=== PATIENT | male | born 1955 | race Two or more races ===

== ENCOUNTER 2016-09-09 12:22 | Emergency (ER) | payer BC ==
[2016-09-09 12:32] VITALS: TEMP 98; BMI 26.3
[2016-09-09 13:09] LABS: EOSINOPHIL 4.2 % (0-4.5); MCH 26.6 pg (25.7-33.7); MCHC 33.7 g/dl (32.0-35.9); MEAN CELL VOLUME 78.9 fl (80-96); MEAN PLT VOLUME 9.1 fl (7.5-11.1); NEUTROPHILS 74.9 % (42.8-82.8); PLATELET COUNT 112 K/MM3 (134-434); RDW 14.6 % (11.9-15.9); WHITE BLOOD COUNT 8.7 K/mm3 (4.0-10.0)
[2016-09-09 13:44] LABS: ALBUMIN 4.2 g/dl (3.4-5.0); ANION GAP 12 (8-16); BILIRUBIN,TOTAL 0.6 mg/dL (0.2-1.0); CALCIUM 8.9 mg/dL (8.5-10.1); CO2 21 mmol/L (21-32); COCKROFT - GAULT 46.45; CREATININE 1.8 mg/dL (0.7-1.3); GLUCOSE,RANDOM 158 mg/dL (74-106); SGOT/AST 25 U/L (15-37); TOT PROT 8.1 g/dl (6.4-8.2)
[2016-09-09 13:49] LABS: INR 1.12 (0.82-1.09); PROTHROMBIN TIME (PATIENT) 12.3 SEC (9.98-11.88)
[2016-09-09 13:50] LABS: ALK PHOS 106 U/L (45-117); SGPT/ALT 32 U/L (12-78); TROPONIN I < 0.02 ng/ml (0.00-0.05)
--- NOTE | 2016-09-09 14:13 | CON.NEURO ---
Consult Consult Specialty:: Neurology Referred by:: Dr. Delroy Barajas Reason for Consultation:: Visual Disturbance - History of Present Illness Chief Complaint: Visual Loss History of Present Illness: Beginning last night around 6 PM patient noticed floaters and generally foggy vision. These were throughout his visual field. 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 When he told his son, his son brought him to the ER. The onset of the inability to read was approximately 9AM this morning, though he is not entirely certain. He notes no weakness, numbness, or sensory loss. Both eyes are involved. He has a long history of disturbed vision. He has had cataracts and very poor vision for years as well as retinal disease. He had been getting laser treatments until about 3 years ago, but then developed severe cardiac disease and had to stop, and hasn't seen an opthalmologist in 3 years. 10-12 years ago he went for an eye exam at [facility], [place] and he tells me that the doctor discovered that he was not able to see to his left side. He was never told why that was, and no diagnostic test was ever undertaken to explain the reason for this hemianopsia. 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: Yes: CVA (he didn't realize it but the homonomous hemianopsia dates back 10 -12 years and likely relates to the stroke visualized on the CT from this AM) Cardio/Vascular: Yes: CAD, HTN, Hyperlipdemia Renal/: Yes: Renal Inusuff, Other (hyperkalemia) Musculoskeletal: Yes: Osteoarthritis Endocrine: Yes: Diabetes Mellitus - Past Surgical History Past Surgical History: Yes: Joint Replacement - Alcohol/Substance Use Hx Alcohol Use: No - Smoking History Smoking history: Current some day smoker Have you smoked in the past 12 months: Yes Aproximately how many cigarettes per day: 2 - Social History Usual Living Arrangement: With Spouse Occupation: works in [employer] in [employer] History of Recent Travel: No Home Medications - Allergies Allergies/Adverse Reactions: Allergies Allergy/AdvReac Type Severity Reaction Status Date / Time Fish Containing Products Allergy Verified 09/09/16 12:32 No Known Drug Allergies Allergy Verified 09/09/16 12:32 - Home Medications Home Medications: Ambulatory Orders Vit B Cmplx 3/FA/Vit C/Biotin [Stacy-Rebeka Rx Tablet] 1 each PO DAILY 01/21/16 Acetaminophen [Tylenol .Regular Strength -] 650 mg PO Q6H PRN #0 tablet Amlodipine Besylate [Norvasc -] 5 mg PO DAILY tablet 01/24/16 Aspirin [ASA -] 81 mg PO DAILY tab.chew 01/24/16 Furosemide [Lasix -] 40 mg PO DAILY #30 tablet 01/24/16 Isosorbide Mononitrate [Imdur -] 30 mg PO DAILY #30 tab.sr.24h 01/24/16 Metoprolol Succinate [Toprol XL -] 50 mg PO DAILY tab.sr.24h 01/24/16 Sitagliptin Phosphate [Januvia -] 25 mg PO DAILY@0700 #30 tab 01/24/16 Clopidogrel Bisulfate [Plavix -] 75 mg PO DAILY 09/09/16 Ferrous Sulfate 325 mg PO DAILY 09/09/16 Ramipril 2.5 mg PO DAILY 09/09/16 Rosuvastatin [Crestor -] 20 mg PO HS 09/09/16 Family Disease History - Family Disease History Family Disease History: Diabetes: Mother Physical Exam-Neuro Vital Signs: Vital Signs Temperature 98.0 F 09/09/16 12:29 Pulse Rate 68 09/09/16 13:12 Respiratory Rate 18 09/09/16 13:12 Blood Pressure 139/64 09/09/16 13:12 O2 Sat by Pulse Oximetry (%) 100 09/09/16 13:12 Labs: CBC, BMP 09/09/16 13:00 09/09/16 13:00 INR, PTT INR 1.12 (0.82-1.09) 09/09/16 13:00 - Neuro Exam Cranial Nerves II-XII Intact: No (II: Left homonous hemianopsia, finger counting on right visual field, postive light reflex, positive response to optokinetic strip) DTR's: 2+ Left Bicep, 2+ Right Bicep, 2+ Left Tricep, 2+ Right Tricep, 2+ Left Brachioradialis, 2+ Right Brachioradialis Babinski: Absent Response to light touch: Normal Motor Strength: 5/5: Left Arm, Right Arm, Left Leg, Right Leg Gait: Deferred NIH Stroke Scale - Total Score NIH Stroke Scale Score: 0 Imaging - Results Cat Scan: Report Reviewed, Image Reviewed (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 I think that the current problem is likely ocular and would consult ophthalmology. His disturbance seemed to start last night with "floaters" and foggy vision and then progress this AM to a severe disturbance in visual acuity. I can't be 100 % certain that the floaters are related to his sudden drop in vision this AM, though it does seem parsimonious to make that assumption. He is certainly out of the TPA window and cannot get an MRI. If ophthalmology cannot find an ocular cause, we could repeat his CT scan tomorrrow to look for left occipital infarction, which could conceivably do this , though wouldn't likely account for his experience of floaters last night. Thanks. Code(s): H54.7 - UNSPECIFIED VISUAL LOSS
--- NOTE | 2016-09-09 15:09 | PDOC ---
History of Present Illness <Delroy Barajas - Last Filed: 09/09/16 16:45> - General History Source: Patient, Family Exam Limitations: No Limitations - History of Present Illness Initial Comments: 09/09/16 15:18 The patient is a 60 year old male presenting with his son, with a significant past medical history of hypertension, hyperlipidemia, CAD s/p cardiac stents, CHF (on Lasix), and Diabetes, who presents to the emergency department with blurry vision since yesterday. He reports that he was experiencing floaters yesterday but today his vision became increasingly blurry, which he describes as lines and foggy. He reports that his colleague helped him check his sugar levels, which were within normal limits. He notes that he usually get intermittent floaters in his right eye on baseline. He reports that he feels that he can see better from his left eye than his right. The patient is following up with an ophthomolagist, who they attempted to see today but the office was closed. He denies any recent trauma or sickness. He states that 3 years ago he was getting eye injections in his right eye due glucose deposits. The patient denies chest pain, shortness of breath, headache and dizziness. Denies fever, chills, nausea, vomit, diarrhea and constipation. Denies dysuria, frequency, urgency and hematuria. Allergies: Fish containing products Past surgical history: Right knee surgery (April 2013), cardiac stents Social history: No alcohol, tobacco or drug use reported PMD - Dr. Feng Plan Coordinator - Dr. Monzon <Maicol Harris - Last Filed: 09/09/16 17:07> - General Chief Complaint: Difficulty seeing Stated Complaint: BLURRY VISION Time Seen by Provider: 09/09/16 12:31 Past History - Past Medical History Anemia: No Asthma: No Cancer: No Cardiac Disorders: Yes (Multiple stensts (2012,2013)) CVA: No COPD: No CHF: No Dementia: No Diabetes: Yes (IDDM) GI Disorders: No Disorders: No HTN: Yes Hypercholesterolemia: Yes Liver Disease: No Seizures: No Thyroid Disease: No - Surgical History Abdominal Surgery: No Appendectomy: No Cardiac Surgery: Yes (Stents X5) Cholecystectomy: No Lung Surgery: No Neurologic Surgery: No Orthopedic Surgery: Yes (ORIF 01/27/14) - Immunization History Immunization Up to Date: No - Psycho/Social/Smoking Cessation Hx Anxiety: No Suicidal Ideation: No Smoking History: Current some day smoker Have you smoked in the past 12 months: Yes Number of Cigarettes Smoked Daily: 2 Information on smoking cessation initiated: No Hx Alcohol Use: No Drug/Substance Use Hx: No Substance Use Type: None Hx Substance Use Treatment: No <Delroy Barajas - Last Filed: 09/09/16 16:45> <Maicol Harris - Last Filed: 09/09/16 17:07> - Past Medical History Allergies/Adverse Reactions: Allergies Allergy/AdvReac Type Severity Reaction Status Date / Time Fish Containing Products Allergy Verified 09/09/16 12:32 No Known Drug Allergies Allergy Verified 09/09/16 12:32 Home Medications: Ambulatory Orders Vit B Cmplx 3/FA/Vit C/Biotin [Stacy-Rebeka Rx Tablet] 1 each PO DAILY 01/21/16 Acetaminophen [Tylenol .Regular Strength -] 650 mg PO Q6H PRN #0 tablet Amlodipine Besylate [Norvasc -] 5 mg PO DAILY tablet 01/24/16 Aspirin [ASA -] 81 mg PO DAILY tab.chew 01/24/16 Furosemide [Lasix -] 40 mg PO DAILY #30 tablet 01/24/16 Isosorbide Mononitrate [Imdur -] 30 mg PO DAILY #30 tab.sr.24h 01/24/16 Metoprolol Succinate [Toprol XL -] 50 mg PO DAILY tab.sr.24h 01/24/16 Sitagliptin Phosphate [Januvia -] 25 mg PO DAILY@0700 #30 tab 01/24/16 Clopidogrel Bisulfate [Plavix -] 75 mg PO DAILY 09/09/16 Ferrous Sulfate 325 mg PO DAILY 09/09/16 Ramipril 2.5 mg PO DAILY 09/09/16 Rosuvastatin [Crestor -] 20 mg PO HS 09/09/16 Review of Systems - Review of Systems Able to Perform ROS?: Yes Comments:: 09/09/16 15:18 GENERAL/CONSTITUTIONAL: No fever or chills. No weakness. HEAD, EYES, EARS, NOSE AND THROAT: (+) Blurry vision. No ear pain or discharge. No sore throat. CARDIOVASCULAR: No chest pain or shortness of breath RESPIRATORY: No cough, wheezing, or hemoptysis. GASTROINTESTINAL: No nausea, vomiting, diarrhea or constipation. GENITOURINARY: No dysuria, frequency, or change in urination. MUSCULOSKELETAL: No joint or muscle swelling or pain. No neck or back pain. SKIN: No rash NEUROLOGIC: No headache, vertigo, loss of consciousness, or change in strength/ sensation. ENDOCRINE: No increased thirst. No abnormal weight change HEMATOLOGIC/LYMPHATIC: No anemia, easy bleeding, or history of blood clots. ALLERGIC/IMMUNOLOGIC: No hives or skin allergy. <Maicol Harris - Last Filed: 09/09/16 17:07> *Physical Exam - Vital Signs Last Vital Signs Temp Pulse Resp BP Pulse Ox 98.0 F 68 18 139/64 100 09/09/16 12:29 09/09/16 13:12 09/09/16 13:12 09/09/16 13:12 09/09/16 13:12 <Delroy Barajas - Last Filed: 09/09/16 16:45> - Vital Signs Last Vital Signs Temp Pulse Resp BP Pulse Ox 98.0 F 68 18 139/64 100 09/09/16 12:29 09/09/16 13:12 09/09/16 13:12 09/09/16 13:12 09/09/16 13:12 - Physical Exam Comments: 09/09/16 15:18 GENERAL: Awake, alert, and fully oriented, in no acute distress HEAD: No signs of trauma, normocephalic, atraumatic EYES: (+) No red relfex in either eye. PERRLA, EOMI, no nystagmus, no discongigate gaze, fundas are not visible on either side, sclera anicteric, conjunctiva clear. Bilateral upper, outer field cuts. No blinking during occular threat. ENT: Auricles normal inspection, hearing grossly normal, nares patent, oropharynx clear without exudates. Moist mucosa NECK: Normal ROM, supple, no lymphadenopathy, JVD, or masses LUNGS: No distress, speaks full sentences, clear to auscultation bilaterally HEART: Regular rate and rhythm, normal S1 and S2, no murmurs, rubs or gallops, peripheral pulses normal and equal bilaterally. ABDOMEN: Soft, nontender, normoactive bowel sounds. No guarding, no rebound. No masses EXTREMITIES: Normal inspection, Normal range of motion, no edema. No clubbing or cyanosis. NEUROLOGICAL: Cranial nerves II through XII grossly intact. Normal speech, normal gait, no focal sensorimotor deficits SKIN: Warm, Dry, normal turgor, no rashes or lesions noted. <Maicol Harris - Last Filed: 09/09/16 17:07> ED Treatment Course - LABORATORY CBC & Chemistry Diagram: 09/09/16 13:00 09/09/16 13:00 - ADDITIONAL ORDERS Additional order review: Laboratory Results 09/09/16 09/09/16 13:00 13:00 INR 1.12 Sodium 139 Potassium 4.7 D Chloride 106 Carbon Dioxide 21 Anion Gap 12 BUN 42 H D Creatinine 1.8 H Creat Clearance w eGFR 38.55 Random Glucose 158 H D Calcium 8.9 Total Bilirubin 0.6 D AST 25 ALT 32 Alkaline Phosphatase 106 Creatine Kinase 133 Troponin I < 0.02 D B-Natriuretic Peptide 4928.22 H Total Protein 8.1 Albumin 4.2 09/09/16 13:00 RBC 3.89 L MCV 78.9 L MCHC 33.7 RDW 14.6 MPV 9.1 Neutrophils % 74.9 D Lymphocytes % 12.4 D Monocytes % 7.5 Eosinophils % 4.2 Basophils % 1.0 - RADIOLOGY Radiology Studies Ordered: Category Date Time Status HEAD CT WITHOUT CONTRAST [CT] Stat CT Scan 09/09/16 12:46 Completed CHEST X-RAY PORTABLE* [RAD] Stat Radiology 09/09/16 12:46 Completed <Delroy Barajas - Last Filed: 09/09/16 16:45> - LABORATORY CBC & Chemistry Diagram: 09/09/16 13:00 09/09/16 13:00 - ADDITIONAL ORDERS Additional order review: Laboratory Results 09/09/16 09/09/16 13:00 13:00 INR 1.12 Sodium 139 Potassium 4.7 D Chloride 106 Carbon Dioxide 21 Anion Gap 12 BUN 42 H D Creatinine 1.8 H Creat Clearance w eGFR 38.55 Random Glucose 158 H D Calcium 8.9 Total Bilirubin 0.6 D AST 25 ALT 32 Alkaline Phosphatase 106 Creatine Kinase 133 Troponin I < 0.02 D B-Natriuretic Peptide 4928.22 H Total Protein 8.1 Albumin 4.2 09/09/16 13:00 RBC 3.89 L MCV 78.9 L MCHC 33.7 RDW 14.6 MPV 9.1 Neutrophils % 74.9 D Lymphocytes % 12.4 D Monocytes % 7.5 Eosinophils % 4.2 Basophils % 1.0 <Maicol Harris - Last Filed: 09/09/16 17:07> Medical Decision Making - Medical Decision Making 09/09/16 15:18 Dr. Romero was called regarding the patient at 1:08pm Dr. Romero was consulted regarding the patient at 1:20pm [phone] Dr. Romero wanted Neurology to consult first. Dr. Romero was called again regarding the patient at 2:25pm, 2:58pm, 3:30pm and at 4:00pm Dr. Romero was consulted regarding the patient at 4:20pm. He would like to see the patient at 5:30pm at his office. Dr. Rafael Peters was called on the request of the family at 4:30pm. Dr. Trent Herzog covering. Dr. Herzog was consulted regarding the patient 4:40pm and he would like to see the patient at office at 6:00pm Dr. Metzger was called regarding the patient at 1:10pm. Dr. Vargas covering. Dr. Vargas was consulted regarding the patient at 1:15pm [phone] Dr. Vargas came to the ED and saw the patient at the bedside at 1:35pm <Maicol Harris - Last Filed: 09/09/16 17:07> *DC/Admit/Observation/Transfer - Discharge Dispostion Admit: No - Attestations Physician Attestion: 09/09/16 15:09 I, Dr. Delroy Barajas, attest that this document has been prepared under my direction and personally reviewed by me in its entirety. I further attest, that it accurately reflects all work, treatment, procedures and medical decision -making performed by me. <Delroy Barajas - Last Filed: 09/09/16 16:45> - Attestations Scribe Attestion: 09/09/16 15:19 Documentation prepared by Maciol Harris, acting as medical center representative for Delroy Barajas MD <Maicol Harris - Last Filed: 09/09/16 17:07> Diagnosis at time of Disposition: Vision loss of right eye - Referrals Referrals: Tatum Feng MD [Primary Care Provider] - - Patient Instructions Additional Instructions: Go Directly to Dr Trent Herzog's office in [place] for a specialized exam. Return to us if he tells you to come back to the ed.
[2016-09-09 16:30] VITALS: BP 132/66; PULSE 64
--- NOTE | 2016-09-10 14:16 | EKG ---
Test Reason : Blood Pressure : / mmHG Vent. Rate : 070 BPM Atrial Rate : 070 BPM P-R Int : 120 ms QRS Dur : 110 ms QT Int : 422 ms P-R-T Axes : 053 -19 112 degrees QTc Int : 455 ms SINUS RHYTHM WITH OCCASIONAL PREMATURE VENTRICULAR COMPLEXES ABNORMAL ECG WHEN COMPARED WITH ECG OF 10-FEB-2016 14:36, PREMATURE VENTRICULAR COMPLEXES ARE NOW PRESENT Confirmed by PRAVEEN MCDUFFIE MD ([id number]) on 09/10/2016 2:16:28 PM Referred By: Confirmed By:PRAVEEN MCDUFFIE MD
== END 2016-09-09 17:09 | disposition home or self-care (01) ==
LOC: JER 12:22
DX: H54.7 Unspecified visual loss (principal); I25.10 Atherosclerotic heart disease of native coronary artery without angina pectoris; I11.0 Hypertensive heart disease with heart failure; I50.9 Heart failure, unspecified; Z95.5 Presence of coronary angioplasty implant and graft; Z72.0 Tobacco use; E11.9 Type 2 diabetes mellitus without complications; Z79.84 Long term (current) use of oral hypoglycemic drugs; E87.5 Hyperkalemia
CPT/HCPCS: 36415; 70450-TC; 71010-TC; 80053; 82550; 83880; 84484; 85025; 85610; 93005; 93010; 99282-25